=== PATIENT | male | born 1945 | race Caucasian/White ===

== ENCOUNTER 2016-11-25 15:09 | Outpatient (CLI) | payer MEDICARE ==
[2016-11-25 16:09] LABS: #Basophils 0.1 thou/uL (0.0-0.2); #Eosinphils 0.1 thou/uL (0.0-0.7); #Monocytes 0.5 thou/uL (0.11-0.59); #Neutrophils 3.3 thou/uL (1.40-6.50); %Eosinophils 2.4 % (0.0-10.0); %Lymphocytes 19.8 % (21.0-51.0); %Monocytes 9.3 % (0.0-10.0); Hematocrit 40.3 % (42.0-52.0); Mean Platelet Volume 8.5 fL (7.4-10.4); Red Blood Cell (RBC) Count 4.13 mill/uL (4.70-6.10); White Blood Cell (WBC) Count 4.8 thou/uL (4.8-10.8)
[2016-11-25 16:33] LABS: ALT (SGPT) 13 U/L (0-55); AST (SGOT) 18 U/L (5-34); Alkaline Phosphatase 82 U/L (40-150); Anion Gap 14 mmol/L (10-20); BUN (Urea Nitrogen) 16 mg/dL (8.4-25.7); Bilirubin, Direct 0.2 mg/dL (0.1-0.3); Bilirubin, Total 0.5 mg/dL (0.2-1.2); Calc. Creatinine Clearance 0 mL/min (70-130); Carbon Dioxide 22 mmol/L (23-31); Chloride 111 mmol/L (98-107); Estimated GFR-MDRD 63; LDL Cholesterol, Calculated 69 mg/dL; Protein, Total 6.1 g/dL (5.8-8.1)
== END 2016-11-25 15:10 | disposition home or self-care (01) ==
LOC: NAVSJIPCSP 15:09
PROVIDERS: ATTEND Family Medicine
DX: M19.90 Unspecified osteoarthritis, unspecified site (principal); N40.1 Benign prostatic hyperplasia with lower urinary tract symptoms; M54.10 Radiculopathy, site unspecified; E78.00 Pure hypercholesterolemia, unspecified; J44.9 Chronic obstructive pulmonary disease, unspecified; I48.2 Chronic atrial fibrillation; I63.9 Cerebral infarction, unspecified
CPT/HCPCS: 36415; 80048; 80061; 80076; 83036; 84443; 85025

== ENCOUNTER 2017-03-26 09:39 | Outpatient (CLI) | payer MEDICARE ==
[2017-03-26 12:29] LABS: #Eosinphils 0.2 thou/uL (0.0-0.7); #Lymphocytes 0.7 thou/uL (1.20-3.40); #Monocytes 0.5 thou/uL (0.11-0.59); #Neutrophils 3.1 thou/uL (1.40-6.50); %Eosinophils 4.4 % (0.0-10.0); %Lymphocytes 16.2 % (21.0-51.0); %Neutrophils 68.4 % (42.0-75.0); Hemoglobin 12.9 g/dL (14.0-18.0); Mean Corpuscular HGB CONC 33.2 g/dL (32.0-36.0); Mean Corpuscular Hemoglobin 32.2 pg (27.0-31.0); Mean Corpuscular Volume 96.9 fl (80.0-94.0); Platelet Count 164 thou/uL (130-400); RBC Distribution Width 12.2 % (11.5-14.5); White Blood Cell (WBC) Count 4.5 thou/uL (4.8-10.8)
[2017-03-26 12:52] LABS: ALT (SGPT) 10 U/L (8-55); AST (SGOT) 19 U/L (5-34); Albumin 4.1 g/dL (3.4-4.8); Alkaline Phosphatase 109 U/L (40-150); Anion Gap 16 mmol/L (10-20); BUN (Urea Nitrogen) 18 mg/dL (8.4-25.7); Bilirubin, Direct 0.2 mg/dL (0.1-0.3); Bilirubin, Total 0.6 mg/dL (0.2-1.2); Calc. Creatinine Clearance 0 mL/min (70-130); Calcium 8.9 mg/dL (7.8-10.44); Carbon Dioxide 21 mmol/L (23-31); Cardiac Risk 3.4 (Less than 4.5); Chloride 109 mmol/L (98-107); Cholesterol 127 mg/dL (< 200 Desired); Estimated GFR-MDRD 64; Glucose 92 mg/dL (83-110); HDL Cholesterol 37 mg/dL (>60 Neg Risk); LDL Cholesterol, Calculated 82 mg/dL; Potassium 4.8 mmol/L (3.5-5.1); Protein, Total 6.4 g/dL (5.8-8.1); Sodium 141 mmol/L (136-145); Triglycerides 39 mg/dL (Less than 150)
== END 2017-03-26 09:40 | disposition home or self-care (01) ==
LOC: NAVSJIPCSP 09:39
PROVIDERS: ATTEND Family Medicine
DX: E78.00 Pure hypercholesterolemia, unspecified (principal); I48.2 Chronic atrial fibrillation; I10 Essential (primary) hypertension; Z79.899 Other long term (current) drug therapy
CPT/HCPCS: 36415; 80048; 80061; 80076; 83036; 84443; 85025

== ENCOUNTER 2017-08-05 09:58 | Outpatient (CLI) | payer MEDICARE ==
[2017-08-05 12:31] LABS: #Basophils 0.1 thou/uL (0.0-0.2); #Eosinphils 0.3 thou/uL (0.0-0.7); #Lymphocytes 0.9 thou/uL (1.20-3.40); #Monocytes 0.5 thou/uL (0.11-0.59); #Neutrophils 3.7 thou/uL (1.40-6.50); %Basophils 0.9 % (0.0-1.0); %Eosinophils 6.1 % (0.0-10.0); %Lymphocytes 16.8 % (21.0-51.0); %Monocytes 8.9 % (0.0-10.0); %Neutrophils 67.3 % (42.0-75.0); Hemoglobin 13.1 g/dL (14.0-18.0); Mean Corpuscular HGB CONC 32.5 g/dL (32.0-36.0); Mean Corpuscular Hemoglobin 31.8 pg (27.0-31.0); Mean Corpuscular Volume 97.9 fl (80.0-94.0); Mean Platelet Volume 7.6 fL (7.4-10.4); Platelet Count 155 thou/uL (130-400); RBC Distribution Width 11.7 % (11.5-14.5); Red Blood Cell (RBC) Count 4.13 mill/uL (4.70-6.10); White Blood Cell (WBC) Count 5.6 thou/uL (4.8-10.8)
[2017-08-05 12:40] LABS: ALT (SGPT) 13 U/L (8-55); AST (SGOT) 15 U/L (5-34); Albumin 4.1 g/dL (3.4-4.8); Alkaline Phosphatase 83 U/L (40-150); Anion Gap 14 mmol/L (10-20); BUN (Urea Nitrogen) 17 mg/dL (8.4-25.7); Bilirubin, Direct 0.4 mg/dL (0.1-0.3); Bilirubin, Total 0.9 mg/dL (0.2-1.2); Calc. Creatinine Clearance 0 mL/min (70-130); Calcium 9.2 mg/dL (7.8-10.44); Carbon Dioxide 23 mmol/L (23-31); Cardiac Risk 3.2 (Less than 4.5); Chloride 107 mmol/L (98-107); Cholesterol 124 mg/dl (< 200 Desired); Estimated GFR-MDRD 64; Glucose 87 mg/dL (83-110); HDL Cholesterol 39 mg/dL (>60 Neg Risk); LDL Cholesterol, Calculated 72 mg/dL; Potassium 4.3 mmol/L (3.5-5.1); Protein, Total 6.4 g/dL (5.8-8.1); Sodium 140 mmol/L (136-145); Triglycerides 67 mg/dL (Less than 150)
[2017-08-05 12:57] LABS: PSA-Asymptomatic (SCREENING) 0.72 ng/mL (0-4.0); Thyroid Stimulating Hormone 2.6951 uIU/mL (0.35-4.94)
[2017-08-05 13:58] LABS: Hemoglobin A1c 5.2 % (4.0-6.0)
== END 2017-08-05 09:59 | disposition home or self-care (01) ==
LOC: NAVSJIPCSP 09:58
PROVIDERS: ATTEND Family Medicine
DX: Z12.5 Encounter for screening for malignant neoplasm of prostate (principal); E78.00 Pure hypercholesterolemia, unspecified; I10 Essential (primary) hypertension; I48.2 Chronic atrial fibrillation; I63.9 Cerebral infarction, unspecified; I69.398 Other sequelae of cerebral infarction; I95.1 Orthostatic hypotension; R42 Dizziness and giddiness; Z79.899 Other long term (current) drug therapy
CPT/HCPCS: 36415; 80048; 80061; 80076; 83036; 83880; 84443; 85025; G0103

== ENCOUNTER 2018-08-04 15:31 | Outpatient (CLI) | payer MEDICARE ==
--- NOTE | 2018-08-04 16:34 | RAD ---
PA AND LATERAL CHEST X-RAY: 08/04/18 HISTORY: Wheezing. COMPARISON: 10/12/17. FINDINGS: A dual lead left subclavian cardiac pacemaking device remains in place. Postsurgical changes related to median sternotomy and cardiac valve replacement are again present. The cardiac silhouette is at th e upper limits of normal in size. Thoracic aorta is tortuous. Parenchymal opacity in the right mid dimas ng zone is resolved. Lungs appear clear on today's exam. No other interval change. IMPRESSION: No acute cardiopulmonary process. POS: ANA MARIA
== END 2018-08-04 15:32 | disposition home or self-care (01) ==
LOC: NAV RAD 15:31
PROVIDERS: ATTEND Family Medicine
DX: R06.2 Wheezing (principal); R06.02 Shortness of breath; Z87.01 Personal history of pneumonia (recurrent)
CPT/HCPCS: 71046

== ENCOUNTER 2019-02-21 15:36 | Emergency (ER) | payer MEDICARE ==
[2019-02-21 16:31] LABS: #Basophils 0.1 thou/uL (0.0-0.2); #Eosinphils 0.1 thou/uL (0.0-0.7); #Monocytes 0.8 thou/uL (0.11-0.59); #Neutrophils 6.8 thou/uL (1.40-6.50); %Basophils 0.9 % (0.0-1.0); %Eosinophils 1.3 % (0.0-10.0); %Monocytes 8.6 % (0.0-10.0); %Neutrophils 78.3 % (42.0-75.0); Hemoglobin 13.6 g/dL (14.0-18.0); Mean Corpuscular HGB CONC 32.1 g/dL (32.0-36.0); Mean Corpuscular Hemoglobin 31.7 pg (27.0-31.0); Mean Corpuscular Volume 98.6 fL (78.0-98.0); Mean Platelet Volume 7.3 fL (7.4-10.4); Platelet Count 177 thou/uL (130-400); RBC Distribution Width 11.6 % (11.5-14.5); Red Blood Cell (RBC) Count 4.28 mill/uL (4.70-6.10); White Blood Cell (WBC) Count 8.7 thou/uL (4.8-10.8)
--- NOTE | 2019-02-21 16:34 | RAD ---
FXR Chest 1 View Portable History: [Dyspnea] Comparison: Radiograph July 2018 Findings: Heart size is enlarged. No pneumothorax. Cardiac device is similar. No focal confluent airs pace consolidation. There appear be surgical clips projecting over the left neck. Increased pericardial fat along the lef t costophrenic sulcus. Impression: Cardiomegaly without evidence of heart failure.
[2019-02-21 16:38] LABS: INR-International Normal Ratio 1.3; Prothrombin Time 16.2 SEC (12.0-14.7)
[2019-02-21 16:46] LABS: ALT (SGPT) 18 U/L (8-55); AST (SGOT) 19 U/L (5-34); Albumin 4.1 g/dL (3.4-4.8); Alkaline Phosphatase 93 U/L (40-150); Anion Gap 13 mmol/L (10-20); BUN (Urea Nitrogen) 18 mg/dL (8.4-25.7); Bilirubin, Total 0.5 mg/dL (0.2-1.2); CK (CPK) 110 U/L (30-200); Calc. Creatinine Clearance 0 mL/min (70-130); Calcium 9.9 mg/dL (7.8-10.44); Carbon Dioxide 24 mmol/L (23-31); Chloride 106 mmol/L (98-107); Estimated GFR-MDRD 73; Globulin 2.7 g/dL (2.4-3.5); Glucose 142 mg/dL (83-110); Potassium 4.1 mmol/L (3.5-5.1); Protein, Total 6.8 g/dL (5.8-8.1); Sodium 139 mmol/L (136-145)
[2019-02-21] MEDS ORDERED: Azithromycin 250 MG TAB ONE (17:17)
[2019-02-21] MEDS ORDERED: methylPREDNISolone Sod Succ/PF 125 MG/2 ML VIAL ONE (17:17)
== END 2019-02-21 17:35 | disposition home or self-care (01) ==
LOC: NAV ERS 15:36
DX: J44.9 Chronic obstructive pulmonary disease, unspecified (principal); D64.9 Anemia, unspecified; I48.91 Unspecified atrial fibrillation; E78.5 Hyperlipidemia, unspecified; N18.2 Chronic kidney disease, stage 2 (mild); Z86.73 Personal history of transient ischemic attack (TIA), and cerebral infarction without residual deficits; I25.10 Atherosclerotic heart disease of native coronary artery without angina pectoris; I25.2 Old myocardial infarction; I10 Essential (primary) hypertension; F41.9 Anxiety disorder, unspecified; F32.9 Major depressive disorder, single episode, unspecified; Z79.82 Long term (current) use of aspirin; Z79.899 Other long term (current) drug therapy; Z79.51 Long term (current) use of inhaled steroids
CPT/HCPCS: 71045; 80053; 82550; 83880; 84484; 85025; 85610; 85730; 87804; 93005; 96374; J2930

== ENCOUNTER 2019-03-13 11:45 | Emergency (ER) | payer MEDICARE ==
[2019-03-13] MEDS ORDERED: Bacitracin Zinc 1 Packet ONE (12:16)
== END 2019-03-13 12:42 | disposition home or self-care (01) ==
LOC: NAV ERS 11:45
DX: S51.811A Laceration without foreign body of right forearm, initial encounter (principal); I48.91 Unspecified atrial fibrillation; E78.5 Hyperlipidemia, unspecified; I12.9 Hypertensive chronic kidney disease with stage 1 through stage 4 chronic kidney disease, or unspecified chronic kidney disease; N18.2 Chronic kidney disease, stage 2 (mild); Z86.73 Personal history of transient ischemic attack (TIA), and cerebral infarction without residual deficits; J44.9 Chronic obstructive pulmonary disease, unspecified; I25.2 Old myocardial infarction; Z79.899 Other long term (current) drug therapy; Z79.82 Long term (current) use of aspirin; W19.XXXA Unspecified fall, initial encounter
CPT/HCPCS: 99282

== ENCOUNTER 2019-04-08 12:02 | Outpatient (CLI) | payer MEDICARE ==
--- NOTE | 2019-04-08 12:33 | RAD ---
2 views of the chest: 04/08/2019 COMPARISON: 08/04/2018 HISTORY: Shortness of breath FINDINGS: Midline sternotomy wires are present. Stable dual lead transvenous pacing device. No pneumo thorax is noted. There is pulmonary vascular prominence and mild perihilar interstitial prominence. No focal consolidation or alveolar edema. No pleural effusion noted on either side. Mechanical cardia c valve noted. IMPRESSION: Mild pulmonary vascular congestion and perihilar interstitial prominence may signify mild interstitial edema in the proper clinical setting. No alveolar edema, focal consolidation, or evidence of pleural fluid.
== END 2019-04-08 12:03 | disposition home or self-care (01) ==
LOC: NAV RAD 12:02
PROVIDERS: ATTEND Nurse Practitioner Adult Health
DX: R06.02 Shortness of breath (principal); J94.8 Other specified pleural conditions; J98.4 Other disorders of lung
CPT/HCPCS: 71046

== ENCOUNTER 2019-06-08 17:37 | Outpatient (CLI) | payer MEDICARE ==
[2019-06-08 18:00] LABS: #Basophils 0.1 thou/uL (0.0-0.2); #Eosinphils 0.4 thou/uL (0.0-0.7); #Monocytes 0.7 thou/uL (0.11-0.59); #Neutrophils 5.2 thou/uL (1.40-6.50); %Basophils 0.8 % (0.0-1.0); %Eosinophils 5.5 % (0.0-10.0); %Lymphocytes 13.7 % (21.0-51.0); %Monocytes 8.9 % (0.0-10.0); Mean Corpuscular HGB CONC 31.6 g/dL (32.0-36.0); Mean Corpuscular Hemoglobin 29.8 pg (27.0-31.0); Mean Corpuscular Volume 94.2 fL (78.0-98.0); Mean Platelet Volume 6.9 fL (7.4-10.4); Platelet Count 296 thou/uL (130-400); RBC Distribution Width 13.9 % (11.5-14.5); Red Blood Cell (RBC) Count 4.03 mill/uL (4.70-6.10); White Blood Cell (WBC) Count 7.3 thou/uL (4.8-10.8)
[2019-06-08 18:04] LABS: Anion Gap 19 mmol/L (10-20); BUN (Urea Nitrogen) 16 mg/dL (8.4-25.7); Calc. Creatinine Clearance 0 mL/min (70-130); Calcium 9.2 mg/dL (7.8-10.44); Carbon Dioxide 23 mmol/L (23-31); Chloride 105 mmol/L (98-107); Estimated GFR-MDRD 59; Glucose 181 mg/dL (83-110); Sodium 143 mmol/L (136-145)
== END 2019-06-08 17:38 | disposition home or self-care (01) ==
LOC: NAV LABSP 17:37
PROVIDERS: ATTEND Family Medicine
DX: I50.9 Heart failure, unspecified (principal); J44.9 Chronic obstructive pulmonary disease, unspecified
CPT/HCPCS: 80048; 83880; 85025

== ENCOUNTER 2019-06-19 19:36 | Inpatient (IN) | payer MEDICARE ==
[2019-06-19] MEDS ORDERED: Acetaminophen 325 MG TAB PO PRN (20:34)
[2019-06-19] MEDS ORDERED: ALPRAZolam 0.25 MG TAB PO PRN (20:35)
[2019-06-19] MEDS: Ubidecarenone 50 MG CAP PO SCH (21:10)
[2019-06-19] MEDS: Apixaban 5 MG TAB PO SCH (21:11)
[2019-06-19] MEDS: Gabapentin 300 MG CAP PO SCH (21:11)
[2019-06-19] MEDS: FLUoxetine HCl 20 MG CAP PO SCH (21:11)
[2019-06-20 05:38] LABS: #Basophils 0.1 thou/uL (0.0-0.2); #Eosinphils 0.3 thou/uL (0.0-0.7); #Lymphocytes 0.9 thou/uL (1.20-3.40); #Monocytes 0.8 thou/uL (0.11-0.59); %Basophils 1.3 % (0.0-1.0); %Eosinophils 3.7 % (0.0-10.0); %Lymphocytes 12.3 % (21.0-51.0); %Monocytes 11.6 % (0.0-10.0); %Neutrophils 71.1 % (42.0-75.0); Hemoglobin 9.1 g/dL (14.0-18.0); Mean Corpuscular Volume 93.7 fL (78.0-98.0); Platelet Count 192 thou/uL (130-400); RBC Distribution Width 13.8 % (11.5-14.5); Red Blood Cell (RBC) Count 3.03 mill/uL (4.70-6.10)
[2019-06-20 05:51] LABS: ALT (SGPT) 14 U/L (8-55); AST (SGOT) 17 U/L (5-34); Albumin 2.8 g/dL (3.4-4.8); Alkaline Phosphatase 85 U/L (40-150); Anion Gap 12 mmol/L (10-20); BUN (Urea Nitrogen) 14 mg/dL (8.4-25.7); Bilirubin, Total 0.3 mg/dL (0.2-1.2); Calc. Creatinine Clearance 104 mL/min (70-130); Calcium 8.4 mg/dL (7.8-10.44); Carbon Dioxide 24 mmol/L (23-31); Chloride 108 mmol/L (98-107); Estimated GFR-MDRD Greater than 90; Globulin 2.1 g/dL (2.4-3.5); Glucose 91 mg/dL (83-110); Potassium 4.3 mmol/L (3.5-5.1); Protein, Total 4.9 g/dL (5.8-8.1); Sodium 140 mmol/L (136-145)
[2019-06-20] MEDS: Fish Oil 1,000 MG CAP PO SCH (08:57)
[2019-06-20] MEDS: Aspirin 81 mg Enteric Coated Tablet PO SCH (08:57)
[2019-06-20] MEDS: Calcium Carbonate + Vit D 1 TAB PO SCH (08:57)
[2019-06-20] MEDS: Apixaban 5 MG TAB PO SCH ×2 (08:57→20:49)
[2019-06-20] MEDS: Ascorbic Acid 500 mg Chewable Tablet PO SCH (08:57)
[2019-06-20] MEDS: Gabapentin 300 MG CAP PO SCH ×2 (08:58→20:49)
[2019-06-20] MEDS: Ubidecarenone 50 MG CAP PO SCH ×2 (08:58→20:49)
[2019-06-20] MEDS: Rosuvastatin 10 MG TAB PO SCH (08:58)
[2019-06-20] MEDS ORDERED: Acetaminophen 325 MG TAB PO PRN (10:05)
[2019-06-20] MEDS ORDERED: Non-Formulary Item 1 EACH (Melatonin [Melatonin] 10 MG) PO PRN (10:05)
[2019-06-20] MEDS ORDERED: ALPRAZolam 0.25 MG TAB PO PRN (10:05)
[2019-06-20] MEDS ORDERED: Senokot S 8.6-50 MG TAB PO PRN (10:07)
[2019-06-20] MEDS ORDERED: Loperamide HCl 2 MG CAP PO PRN (10:07)
[2019-06-20] MEDS ORDERED: Ondansetron ODT 4 MG TAB PO PRN (10:07)
[2019-06-20] MEDS ORDERED: Rosuvastatin 10 MG TAB PO SCH (10:15)
[2019-06-20] MEDS: FLUoxetine HCl 20 MG CAP PO SCH (20:49)
[2019-06-20] MEDS ORDERED: Apixaban 5 MG TAB PO SCH (21:00)
[2019-06-20] MEDS ORDERED: Gabapentin 300 MG CAP PO SCH (21:00)
[2019-06-20] MEDS ORDERED: Non-Formulary Item 1 EACH (Fluoxetine Hcl [Fluoxetine Hcl] 20 MG) PO SCH (21:00)
[2019-06-20] MEDS ORDERED: Non-Formulary Item 1 EACH (Ubidecarenone [Co Q-10] 200 MG) PO SCH (21:00)
--- NOTE | 2019-06-20 23:32 | HP ---
HISTORY OF PRESENT ILLNESS: Mr. Metcalf is a pleasant 73-year-old white male, well known to me with multiple medical problems. Apparently, he ended up at [facility] in [place], where he had an adverse reaction after his bdc manager had changed his medicine to amiodarone. He started having nausea and vomiting, and was brought back to the hospital at [facility]. He was taken off the amiodarone. He now was transferred to [facility] because of his extreme weakness and debility. PAST MEDICAL HISTORY: Reveals the patient has the following; 1. Congestive heart failure, [place] Heart Association class III. 2. Hypotension. 3. Chronic atrial fibrillation. 4. Atherosclerotic heart disease. 5. Chronic anemia. 6. Chronic obstructive pulmonary disease. 7. Essential hypertension. 8. HFrEF. 9. Long-term use of anticoagulants. 10. Generalized weakness. 11. Systolic heart failure, followed by Dr. Yovany Tsang. 12. Hyperlipidemia. 13. Neuropathy. 14. Prior stroke and TIAs. 15. Degenerative joint disease. 16. Constipation. PAST SURGICAL HISTORY: 1. CABG in 2006. 2. PTCA in 2004. 3. Cholecystectomy in 2007. 4. Pacemaker placement in 2013. 5. Aortic valve replacement in 2011. 6. Ablation x4. 7. Herniorrhaphy, twice in 1979 and 1994. 8. Appendectomy in 1949. 9. Colonoscopy by Dr. Andreas Ovalles in 2007. 10. Cardiac catheterization in 2015. 11. Left ureteroscopy with stone basket extraction of a stone along with retrograde pyelogram along with left ureteral stent placement, which was on 09/13/2017. FAMILY HISTORY: Reveals the patient's father at age 70, diagnosed with heart disease and stroke. The patient's mother at age 75 with heart issues. Siblings revealed brother in early 2017 for suspected lung issues and he was a smoker. The patient has a daughter, who is alive and a granddaughter, who is alive. SOCIAL HISTORY: 1. The patient did not smoke. 2. The patient used to drink a little bit of liquor, one daily. 3. [place] 4. The patient is retired. 5. The patient is . 6. The patient has two daughters. 7. The patient has 2 to 3 cups of coffee daily. 8. The patient does not exercise daily. 9. The patient is right-handed. ALLERGIES: REVEALS THE PATIENT IS ALLERGIC TO, 1. PENICILLIN. 2. IBUPROFEN. 3. COUMADIN. 4. CODEINE. 5. DOXYCYCLINE GIVES ITCH. PRESENT MEDICATIONS: Reveals the patient is presently on the following; 1. Tylenol 650 mg q.4 p.r.n. 2. DuoNebs 3 mL neb treatment q.6 hours p.r.n. 3. Xanax 0.25 at bedtime p.r.n. 4. Eliquis 5 mg b.i.d. 5. Vitamin C 1000 mg daily. 6. . 7. Calcium plus vitamin D one tab daily. 8. Vitamin D3 of 1000 units daily. 9. CoQ10 of 200 mg b.i.d. 10. Fish oil 1000 mg daily. 11. Fluoxetine 20 mg at bedtime. 12. Gabapentin 300 mg b.i.d. 13. Imodium p.r.n. 14. Melatonin 10 mg daily. 15. Zofran 4 mg p.r.n. 16. Pantoprazole 40 mg daily. 17. Ranexa 1000 mg p.o. b.i.d. 18. Rosuvastatin 10 mg every other day. 19. Senokot two tabs p.o. b.i.d. REVIEW OF SYSTEMS: CONSTITUTIONAL: Reveals the patient generally denies fever, chills, change in weight, or sleep problems. He does report to be very fatigued and weak. EYES: Denies eye pain, vision change, and/or blindness. ENT: Denies nasal congestion, rhinorrhea, or sneezing. RESPIRATORY: The patient denies cough, cold, congestion, or shortness of breath , although he does have poor exercise tolerance. CARDIOVASCULAR: Denies palpitations, although he has chronic atrial fib, which he does not feel. Denies chest pain, orthopnea, or claudication. GI: The patient denies nausea, vomiting, diarrhea, constipation, or bloody or black tarry stools. : Denies dysuria, hematuria, frequency, urgency, or incontinence. SKIN: Denies skin rashes or skin lesions. MUSCULOSKELETAL: The patient does complain of pain, mainly in his back. NEUROLOGICAL: The patient denies seizures, weakness, syncope, or numbness. PSYCHOLOGIC: The patient denies anxiety or depressive disorder. PHYSICAL EXAMINATION: VITAL SIGNS: This morning reveal blood pressure 134/73, pulse 73, respirations 20, O2 saturation 96% to 97% on room air, and T-max 98.3. GENERAL: This is a well-developed, well-nourished, alert and oriented x3 white male, in no apparent distress at this time. HEENT: Reveals normocephalic and nontraumatic cranium. Pupils are equally round and reactive. Extraocular movements are intact. Nose and throat are clear, but slightly dry. NECK: Supple without masses, nodes, or bruits. No jugular venous distention is noted. CHEST: Clear to auscultation. No rales, no rhonchi, no wheezes are heard. No cough is noted. HEART: Reveals an irregularly irregular rate and rhythm. ABDOMEN: Soft, nontender without organomegaly. Normal bowel sounds are noted in all 4 quadrants. No rebound or guarding is noted. : Deferred. EXTREMITIES: Reveal no clubbing, cyanosis, or edema. SKIN: Reveals a couple of scraped areas on his shins that apparently he rubbed up against the bed or something. PSYCHIATRIC: The patient shows no signs or symptoms of anxiety or depressive disorder. ASSESSMENT: 1. Coronary artery disease. 2. Systolic congestive heart failure. 3. Hypertension. 4. Chronic obstructive pulmonary disease. 5. Gastroesophageal reflux disease. 6. Hyperlipidemia. 7. Neuropathy. 8. Prior history of stroke and transient ischemic attacks. 9. Degenerative joint disease. 10. Constipation. 11. Generalized weakness. PLAN: 1. The patient is admitted here for physical therapy and occupational therapy. 2. We will continue to monitor the patient's heart rate for RVR. 3. We will continue to monitor the patient's blood pressure and adjust medications as needed. 4. Monitor the patient for chest pain. 5. Continue to monitor the patient's anemia and renal indices. 6. Stress ulcer prophylaxis. 7. Decubitus precautions. 8. DVT prophylaxis. 9. Physical therapy and occupational therapy. Job ID: [id number] [facility]
[2019-06-21 05:34] LABS: #Basophils 0.1 thou/uL (0.0-0.2); #Eosinphils 0.3 thou/uL (0.0-0.7); #Lymphocytes 0.8 thou/uL (1.20-3.40); #Monocytes 0.7 thou/uL (0.11-0.59); #Neutrophils 4.4 thou/uL (1.40-6.50); %Eosinophils 4.3 % (0.0-10.0); %Lymphocytes 13.1 % (21.0-51.0); %Monocytes 10.8 % (0.0-10.0); %Neutrophils 70.8 % (42.0-75.0); Hemoglobin 9.3 g/dL (14.0-18.0); Mean Corpuscular HGB CONC 31.3 g/dL (32.0-36.0); Mean Corpuscular Hemoglobin 29.2 pg (27.0-31.0); Mean Corpuscular Volume 93.1 fL (78.0-98.0); Mean Platelet Volume 6.7 fL (7.4-10.4); Platelet Count 199 thou/uL (130-400); RBC Distribution Width 14.1 % (11.5-14.5); Red Blood Cell (RBC) Count 3.18 mill/uL (4.70-6.10); White Blood Cell (WBC) Count 6.3 thou/uL (4.8-10.8)
[2019-06-21 05:48] LABS: ALT (SGPT) 14 U/L (8-55); AST (SGOT) 16 U/L (5-34); Albumin 2.9 g/dL (3.4-4.8); Alkaline Phosphatase 79 U/L (40-150); Anion Gap 12 mmol/L (10-20); BUN (Urea Nitrogen) 10 mg/dL (8.4-25.7); Bilirubin, Total 0.3 mg/dL (0.2-1.2); Calc. Creatinine Clearance 107 mL/min (70-130); Calcium 8.5 mg/dL (7.8-10.44); Carbon Dioxide 24 mmol/L (23-31); Chloride 109 mmol/L (98-107); Estimated GFR-MDRD Greater than 90; Globulin 2.1 g/dL (2.4-3.5); Glucose 94 mg/dL (83-110); Sodium 141 mmol/L (136-145)
[2019-06-21 06:11] LABS: Bilirubin Negative (Negative); Blood, Urine Negative (Negative); Clarity Clear (Clear); Glucose, Urine (Dipstick) Negative (Negative); Leukocyte Negative (Negative); Nitrite Negative (Negative); Protein, Urine (Dipstick) Negative (Neg-Trace)
[2019-06-21 07:17] LABS: Bacteria/HPF None Seen HPF (None Seen); RBC/HPF None Seen HPF (0-3); Squamous Epithelial None Seen HPF (0-3); WBC/HPF 0-3 HPF (0-3)
[2019-06-21] MEDS ORDERED: Calcium Carbonate + Vit D 1 TAB PO SCH (09:00)
[2019-06-21] MEDS ORDERED: Non-Formulary Item 1 EACH (Ascorbic Acid [C-1000] 1,000 MG) PO SCH (09:00)
[2019-06-21] MEDS ORDERED: Fish Oil 1,000 MG CAP PO SCH (09:00)
[2019-06-21] MEDS ORDERED: Aspirin 81 mg Enteric Coated Tablet PO SCH (09:00)
[2019-06-21] MEDS: Apixaban 5 MG TAB PO SCH ×2 (09:15→20:50)
[2019-06-21] MEDS: Ascorbic Acid 500 mg Chewable Tablet PO SCH (09:15)
[2019-06-21] MEDS: Gabapentin 300 MG CAP PO SCH ×2 (09:16→20:50)
[2019-06-21] MEDS: Fish Oil 1,000 MG CAP PO SCH (09:16)
[2019-06-21] MEDS: Calcium Carbonate + Vit D 1 TAB PO SCH (09:16)
[2019-06-21] MEDS: Aspirin 81 mg Enteric Coated Tablet PO SCH (09:16)
[2019-06-21] MEDS: Ubidecarenone 50 MG CAP PO SCH ×2 (09:17→20:49)
--- NOTE | 2019-06-21 10:28 | PRG ---
DATE OF SERVICE: 06/21/2019 SUBJECTIVE: Mr. Metcalf is a 73-year-old white male with multiple medical problems. Apparently, he went to [facility] and had a Watchman procedure done. On his way home, he started having nausea and vomiting, and was transferred back to the hospital at [facility]. It was felt his amiodarone had aggravated his stomach, so he was stopped on that. He was eventually stabilized and transferred to [facility] for extreme weakness and debility. The patient states he is feeling much better today and does not have any indigestion and is eating fairly well. He has no complaints today. OBJECTIVE: VITAL SIGNS: Today blood pressure 152/71, pulse 70 to 73, respirations 20, O2 saturation 95% to 97% on room air, and T-max 98.5. GENERAL: This is a well-developed, well-nourished, pleasant white male, in no apparent distress. He is getting ready to do his therapy this morning. HEENT: Normocephalic and nontraumatic cranium. Pupils are equally round and reactive. Extraocular movements are intact. Nose and throat are slightly dry. NECK: Supple without masses, nodes, or bruits. No jugular venous distention is noted. CHEST: Clear to auscultation. No rales, rhonchi, or wheezes are heard. No cough is noted. HEART: Irregularly irregular rate and rhythm. ABDOMEN: Soft, nontender without organomegaly. Normal bowel sounds noted in all 4 quadrants. No rebound or guarding is noted. : Deferred. EXTREMITIES: No clubbing, cyanosis, or edema. ASSESSMENT: 1. Coronary artery disease. 2. Systolic congestive heart failure. 3. Hypertension. 4. Chronic obstructive pulmonary disease. 5. Gastroesophageal reflux disease. 6. Hyperlipidemia. 7. Neuropathy. 8. Prior history of stroke and transient ischemic attacks. 9. Degenerative joint disease. 10. Constipation. 11. Generalized weakness. PLAN: 1. Continue aggressive physical therapy and occupational therapy. 2. Continue to monitor the patient's heart rate for RVR. 3. Monitor the patient's blood pressure and adjust medications as needed. 4. Monitor the patient for chest pain. 5. Continue to monitor the patient's anemia and renal indices. 6. Stress ulcer prophylaxis. 7. Decubitus precautions. 8. DVT prophylaxis. 9. Physical therapy and occupational therapy. Job ID: [id number]
[2019-06-21] MEDS: FLUoxetine HCl 20 MG CAP PO SCH (20:50)
[2019-06-22] MEDS: Apixaban 5 MG TAB PO SCH ×2 (08:28→20:39)
[2019-06-22] MEDS: Ascorbic Acid 500 mg Chewable Tablet PO SCH (08:28)
[2019-06-22] MEDS: Fish Oil 1,000 MG CAP PO SCH (08:28)
[2019-06-22] MEDS: Aspirin 81 mg Enteric Coated Tablet PO SCH (08:28)
[2019-06-22] MEDS: Ubidecarenone 50 MG CAP PO SCH ×2 (08:28→20:39)
[2019-06-22] MEDS: Gabapentin 300 MG CAP PO SCH ×2 (08:28→20:39)
[2019-06-22] MEDS: Rosuvastatin 10 MG TAB PO SCH (08:28)
[2019-06-22] MEDS: Calcium Carbonate + Vit D 1 TAB PO SCH (08:29)
--- NOTE | 2019-06-22 17:54 | PRG ---
DATE OF SERVICE: 06/22/2019 HISTORY OF PRESENT ILLNESS: Mr. Metcalf is a 73-year-old white male with multiple medical problems. He was admitted to [facility] in [place] and had a Watchman procedure done. He did well, and on his way back, he had to stop in [place], where he had significant projectile vomiting. An ambulance was called and he was transferred back to [facility]. It was felt that his amiodarone has aggravated the stomach, so he stopped that. Eventually, he stabilized and was transferred to [facility] for physical therapy and occupational therapy because of his extreme weakness. SUBJECTIVE: The patient states he did well today. His brand new Rollator was evaluated by Physical Therapy and was deemed to be too short for him. Apparently, a family member bought that for him. They will try to get a new one or exchange or something. Otherwise, he states he is doing well and is walking a bit better, but he tends to have significant problems with his balance and he kind of pings off each wall. PHYSICAL EXAMINATION: VITAL SIGNS: Reveal blood pressure this afternoon 158/77, pulse 70, respirations 18, O2 saturation 96% on room air, and T-max 98.3. GENERAL: This is a well-developed, well-nourished, tall, white male, in no apparent distress at this time. HEENT: Reveal normocephalic and nontraumatic cranium. Pupils are equally round and reactive. Extraocular movements are intact. Nose and throat are moist today. NECK: Supple without masses, nodes, or bruits. CHEST: Clear to auscultation. No rales, rhonchi, wheezes, or cough is heard. HEART: Reveals an irregularly irregular rate and rhythm. ABDOMEN: Soft and nontender without organomegaly. Normal bowel sounds are noted. No rebound or guarding is noted. : Deferred. EXTREMITIES: Reveal no clubbing, cyanosis, or edema. ASSESSMENT: 1. Systolic congestive heart failure, acute on chronic. 2. Coronary artery disease. 3. Chronic obstructive pulmonary disease. 4. Hypertension. 5. Gastroesophageal reflux disease. 6. Hyperlipidemia. 7. Neuropathy. 8. Prior history of stroke and transient ischemic attacks. 9. Degenerative joint disease. 10. Constipation. 11. Generalized weakness. PLAN: 1. Continue aggressive physical therapy and occupational therapy. 2. Continue to monitor the patient's heart for RVR. 3. Monitor the patient's blood pressure and adjust medications as needed. 4. Monitor the patient for chest pain. 5. Monitor the patient's anemia and renal indices. 6. Stress ulcer prophylaxis. 7. Decubitus precautions. 8. DVT prophylaxis. Job ID: [id number]
[2019-06-22] MEDS: FLUoxetine HCl 20 MG CAP PO SCH (20:39)
[2019-06-22] MEDS: Melatonin 3 MG TAB PO PRN (20:44)
[2019-06-23] MEDS ORDERED: Mag-Al Plus 1200 MG/1200 MG/120 MG/30 ML UDCUP PO PRN (06:38)
[2019-06-23] MEDS: Ascorbic Acid 500 mg Chewable Tablet PO SCH (09:14)
[2019-06-23] MEDS: Aspirin 81 mg Enteric Coated Tablet PO SCH (09:14)
[2019-06-23] MEDS: Ubidecarenone 50 MG CAP PO SCH ×2 (09:14→21:24)
[2019-06-23] MEDS: Fish Oil 1,000 MG CAP PO SCH (09:14)
[2019-06-23] MEDS: Calcium Carbonate + Vit D 1 TAB PO SCH (09:15)
[2019-06-23] MEDS: Polyethylene Glycol 3350 17 GM Packet PO PRN (09:15)
[2019-06-23] MEDS: Apixaban 5 MG TAB PO SCH ×2 (09:15→21:23)
[2019-06-23] MEDS: Gabapentin 300 MG CAP PO SCH ×2 (09:15→21:23)
[2019-06-23] MEDS: FLUoxetine HCl 20 MG CAP PO SCH (21:23)
[2019-06-23] MEDS: Melatonin 3 MG TAB PO PRN (21:23)
[2019-06-24] MEDS: Polyethylene Glycol 3350 17 GM Packet PO PRN (09:03)
[2019-06-24] MEDS: Calcium Carbonate + Vit D 1 TAB PO SCH (09:03)
[2019-06-24] MEDS: Ubidecarenone 50 MG CAP PO SCH ×2 (09:04→21:43)
[2019-06-24] MEDS: Fish Oil 1,000 MG CAP PO SCH (09:04)
[2019-06-24] MEDS: Gabapentin 300 MG CAP PO SCH ×2 (09:04→21:43)
[2019-06-24] MEDS: Aspirin 81 mg Enteric Coated Tablet PO SCH (09:05)
[2019-06-24] MEDS: Apixaban 5 MG TAB PO SCH ×2 (09:05→21:43)
[2019-06-24] MEDS: Ascorbic Acid 500 mg Chewable Tablet PO SCH (09:05)
[2019-06-24] MEDS: Rosuvastatin 10 MG TAB PO SCH (09:05)
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
[2019-06-24] MEDS: FLUoxetine HCl 20 MG CAP PO SCH (21:43)
[2019-06-24] MEDS: Melatonin 3 MG TAB PO PRN (21:49)
[2019-06-24] MEDS: ALPRAZolam 0.5 MG TAB PO PRN (22:03)
[2019-06-25] MEDS: Apixaban 5 MG TAB PO SCH ×2 (09:38→22:09)
[2019-06-25] MEDS: Aspirin 81 mg Enteric Coated Tablet PO SCH (09:38)
[2019-06-25] MEDS: Ascorbic Acid 500 mg Chewable Tablet PO SCH (09:38)
[2019-06-25] MEDS: Gabapentin 300 MG CAP PO SCH ×2 (09:39→22:09)
[2019-06-25] MEDS: Calcium Carbonate + Vit D 1 TAB PO SCH (09:39)
[2019-06-25] MEDS: Fish Oil 1,000 MG CAP PO SCH (09:39)
[2019-06-25] MEDS: Ubidecarenone 50 MG CAP PO SCH ×2 (09:39→22:07)
[2019-06-25] MEDS: Polyethylene Glycol 3350 17 GM Packet PO PRN (09:40)
[2019-06-25] MEDS: ALPRAZolam 0.5 MG TAB PO PRN (22:08)
[2019-06-25] MEDS: FLUoxetine HCl 20 MG CAP PO SCH (22:09)
[2019-06-25] MEDS: Melatonin 3 MG TAB PO PRN (22:09)
[2019-06-26] MEDS: Aspirin 81 mg Enteric Coated Tablet PO SCH (09:56)
[2019-06-26] MEDS: Calcium Carbonate + Vit D 1 TAB PO SCH (09:56)
[2019-06-26] MEDS: Fish Oil 1,000 MG CAP PO SCH (09:56)
[2019-06-26] MEDS: Apixaban 5 MG TAB PO SCH ×2 (09:56→21:28)
[2019-06-26] MEDS: Ascorbic Acid 500 mg Chewable Tablet PO SCH (09:56)
[2019-06-26] MEDS: Ubidecarenone 50 MG CAP PO SCH ×2 (09:57→21:30)
[2019-06-26] MEDS: Gabapentin 300 MG CAP PO SCH ×2 (09:57→21:28)
[2019-06-26] MEDS: Rosuvastatin 10 MG TAB PO SCH (09:57)
[2019-06-26 13:20] VITALS: BMI 25.0
[2019-06-26] MEDS: FLUoxetine HCl 20 MG CAP PO SCH (21:28)
[2019-06-26] MEDS: Melatonin 3 MG TAB PO PRN (21:29)
[2019-06-26] MEDS: ALPRAZolam 0.5 MG TAB PO PRN (21:29)
--- NOTE | 2019-06-26 21:51 | PRG ---
DATE OF SERVICE: 06/26/2019 SUBJECTIVE: The patient feels well. He is getting stronger, is preparing to be discharged home. He is having no further nausea, or vomiting. Having increased strength. OBJECTIVE: VITAL SIGNS: Blood pressure 151/69, temperature is 97, pulse 71, respirations 16, O2 sats 94% on room air. GENERAL: The patient is walking in the tr[place], although he has high fall risk. ASSESSMENT: 1. Resolving deconditioning. 2. Stable chronic obstructive pulmonary disease. 3. Stable hypertension. 4. Stable congestive heart failure, compensated. 5. Stable atrial fibrillation with rate control, but no anticoagulation. PLAN: 1. Continue PT/OT. 2. Monitor vital signs with therapy. 3. Discuss safety awareness and discharge planning. Job ID: [id number]
--- NOTE | 2019-06-27 07:45 | PRG ---
DATE OF SERVICE: 06/25/2019 SUBJECTIVE: The patient is a 73-year-old white male, patient of Dr. Victoria Hurtado with a history of reaction to amiodarone after a Watchman procedure at [facility] with subsequent severe nausea, vomiting, and weakness, and inability to care for himself. OBJECTIVE: GENERAL: The patient is awake and alert at this time, in no acute distress, cooperating well with therapy. VITAL SIGNS: Show him to have temperature 96.1, pulse 70, respirations 20, O2 sats 95% on room air, blood pressure is 144/71. LUNGS: Clear. CARDIAC: Shows regular rhythm. ABDOMEN: Soft, nontender. SKIN/EXTREMITIES: Display no edema, clubbing, or cyanosis. NEUROLOGIC: Shows no focal finding. ASSESSMENT: 1. Stable systolic congestive heart failure, compensated. 2. Asymptomatic coronary artery disease, stable. 3. Hypertension, controlled to goal. 4. History of stroke and transient ischemic attack with no recent occurrence. 5. History of atrial fibrillation with rate control and no need for anticoagulation after Watchman procedure. PLAN: 1. Continue apixaban; although, history states he had a Watchman procedure. We will discuss with Dr. Hurtado. 2. Continue PT/OT. 3. Monitor for chest pain, shortness of breath, or dizziness. Job ID: [id number]
[2019-06-27] MEDS: Ascorbic Acid 500 mg Chewable Tablet PO SCH (08:23)
[2019-06-27] MEDS: Polyethylene Glycol 3350 17 GM Packet PO PRN (08:23)
[2019-06-27] MEDS: Calcium Carbonate + Vit D 1 TAB PO SCH (08:23)
[2019-06-27] MEDS: Apixaban 5 MG TAB PO SCH ×2 (08:24→19:56)
[2019-06-27] MEDS: Aspirin 81 mg Enteric Coated Tablet PO SCH (08:24)
[2019-06-27] MEDS: Gabapentin 300 MG CAP PO SCH ×2 (08:24→19:57)
[2019-06-27] MEDS: Fish Oil 1,000 MG CAP PO SCH (08:24)
[2019-06-27] MEDS: Ubidecarenone 50 MG CAP PO SCH ×2 (19:25→19:57)
[2019-06-27] MEDS: FLUoxetine HCl 20 MG CAP PO SCH (19:56)
[2019-06-27 20:23] VITALS: TEMP 98.2
--- NOTE | 2019-06-27 21:00 | PRG ---
DATE OF SERVICE: 06/27/2019 HISTORY: Mr. Metcalf is a very pleasant 73-year-old white male, who had a Watchman procedure at [facility]. He postoperatively did well and was sent home. He started having some nausea, vomiting, and had significant vomiting in [place], [place]. He had to come out of the car and eventually EMS was called and transported him back to [facility]. He was stabilized. He was on amiodarone, which was thought to have aggravated his stomach, it was stopped. Eventually, he was transferred to [facility] for physical therapy and occupational therapy. SUBJECTIVE: The patient states he is doing well and walking much better. He states he pushed a wheelchair around several times yesterday and is ready for discharge. I did talk with Physical Therapy and Occupational Therapy and they think he most likely be discharged tomorrow, the next day. OBJECTIVE: VITAL SIGNS: Reveal blood pressure 155/77, pulse 70, respirations 20, O2 saturation 95% to 96% on room air, and T-max 96. GENERAL: This is a well-developed and well-nourished, very pleasant, slightly obese white male, in no apparent distress at this time. HEENT: Normocephalic and nontraumatic cranium. Pupils are equally round and reactive. Extraocular movements intact. Nose and throat are slightly dry. NECK: Supple without masses, nodes, or bruits. CHEST: Clear to auscultation. No rales, rhonchi, wheezes, or cough is heard. HEART: Reveals an irregularly irregular rate and rhythm. ABDOMEN: Soft and nontender without organomegaly. Normal bowel sounds are noted in all 4 quadrants. No rebound or guarding is noted. : Deferred. EXTREMITIES: Reveal no clubbing, cyanosis, or edema. ASSESSMENT: 1. Systolic congestive heart failure, acute on chronic, presently stable. 2. Coronary artery disease. 3. Chronic obstructive pulmonary disease. 4. Hypertension. 5. Gastroesophageal reflux disease. 6. Hyperlipidemia. 7. Neuropathy. 8. Prior history of stroke and transient ischemic attack. 9. Degenerative joint disease. 10. Constipation. 11. Generalized weakness. PLAN: 1. Discharge planning for discharge tomorrow, the next day. 2. Continue aggressive physical therapy and occupational therapy. 3. Continue to monitor the patient's heart for RVR. 4. Monitor the patient's blood pressure, adjust medications as needed. 5. Monitor the patient for chest pain. 6. Monitor the patient's anemia and renal indices. 7. Stress ulcer prophylaxis. 8. Decubitus precautions. 9. DVT prophylaxis. 10. Continue physical therapy and occupational therapy. Job ID: [id number]
[2019-06-27] MEDS: ALPRAZolam 0.5 MG TAB PO PRN (21:18)
[2019-06-28 06:04] LABS: #Basophils 0.1 thou/uL (0.0-0.2); #Eosinphils 0.3 thou/uL (0.0-0.7); #Monocytes 0.6 thou/uL (0.11-0.59); #Neutrophils 5.8 thou/uL (1.40-6.50); %Eosinophils 3.6 % (0.0-10.0); %Lymphocytes 13.2 % (21.0-51.0); %Monocytes 8.1 % (0.0-10.0); %Neutrophils 74.1 % (42.0-75.0); Hemoglobin 10.2 g/dL (14.0-18.0); Mean Corpuscular HGB CONC 31.6 g/dL (32.0-36.0); Mean Corpuscular Hemoglobin 29.8 pg (27.0-31.0); Mean Corpuscular Volume 94.4 fL (78.0-98.0); Mean Platelet Volume 6.9 fL (7.4-10.4); Platelet Count 227 thou/uL (130-400); RBC Distribution Width 14.7 % (11.5-14.5); Red Blood Cell (RBC) Count 3.42 mill/uL (4.70-6.10); White Blood Cell (WBC) Count 7.9 thou/uL (4.8-10.8)
[2019-06-28 06:22] LABS: Carbon Dioxide 26 mmol/L (23-31); Chloride 106 mmol/L (98-107); Potassium 4.3 mmol/L (3.5-5.1); Sodium 140 mmol/L (136-145)
[2019-06-28 06:23] LABS: ALT (SGPT) 11 U/L (8-55); AST (SGOT) 12 U/L (5-34); Albumin 3.2 g/dL (3.4-4.8); Alkaline Phosphatase 86 U/L (40-150); Anion Gap 12 mmol/L (10-20); BUN (Urea Nitrogen) 17 mg/dL (8.4-25.7); Bilirubin, Total 0.3 mg/dL (0.2-1.2); Calc. Creatinine Clearance 87 mL/min (70-130); Calcium 8.6 mg/dL (7.8-10.44); Estimated GFR-MDRD 75; Globulin 1.9 g/dL (2.4-3.5); Glucose 92 mg/dL (83-110); Protein, Total 5.1 g/dL (5.8-8.1)
[2019-06-28 08:37] VITALS: BP 119/58
[2019-06-28] MEDS: Aspirin 81 mg Enteric Coated Tablet PO SCH (08:48)
[2019-06-28] MEDS: Calcium Carbonate + Vit D 1 TAB PO SCH (08:48)
[2019-06-28] MEDS: Fish Oil 1,000 MG CAP PO SCH (08:48)
[2019-06-28] MEDS: Gabapentin 300 MG CAP PO SCH (08:48)
[2019-06-28] MEDS: Rosuvastatin 10 MG TAB PO SCH (08:48)
[2019-06-28] MEDS: Ascorbic Acid 500 mg Chewable Tablet PO SCH (08:48)
[2019-06-28] MEDS: Ubidecarenone 50 MG CAP PO SCH (08:48)
[2019-06-28] MEDS: Apixaban 5 MG TAB PO SCH (08:48)
--- NOTE | 2019-06-28 17:18 | DIS ---
DATE OF ADMISSION: 06/19/2019 DATE OF DISCHARGE: 06/28/2019 HOSPITAL COURSE: Mr. Metcalf is a very pleasant 73-year-old white male, who was admitted to [facility] in [place] for a Watchman procedure. He did well postoperatively and was sent home. He was riding home with a friend and they had to stop in [place] because he became very nauseated. He started having significant nausea and projectile vomiting, and an ambulance was called and he was brought back to [facility] in [place]. There, he was stabilized. It was felt that he had been on amiodarone, which was thought to have aggravated the stomach. It was stopped, and eventually, he was transferred back to [facility] for physical therapy and occupational therapy to increase his strength and stamina. SUBJECTIVE: The patient states he is doing well and much more stable and wishes to go home. He has gotten okay from occupational therapy and physical therapy to be discharged. OBJECTIVE: VITAL SIGNS: Today, reveal blood pressure 119/58, pulse 70, respirations 18 to 20, O2 saturation of 97% on room air, and T-max 98.2. DISCHARGE MEDICATIONS: Include the followin. Aspirin 81 mg a day. 2. Ascorbic acid (vitamin C) 1000 mg a day. 3. Apixaban 5 mg b.i.d. 4. Xanax 0.25 mg at bedtime p.r.n. 5. Tylenol 650 mg q.4 hours p.r.n. 6. CoQ10 200 mg b.i.d. 7. Calcium carbonate plus vitamin D 1 pill a day. 8. Vitamin D3 2000 units a day. 9. Fluoxetine 20 mg a day. 10. Fish oil 1000 mg a day. 11. Gabapentin 300 mg b.i.d. 12. DuoNebs 3 mL nebs q.6 hours p.r.n. 13. Melatonin 10 mg at bedtime. 14. Protonix 40 mg b.i.d. 15. Ranexa 1000 mg b.i.d. 16. Crestor (rosuvastatin) 10 mg every other day. PHYSICAL EXAMINATION: VITAL SIGNS: This is a well-developed, well-nourished, very pleasant, slightly obese white male, in no apparent distress at this time. HEENT: Reveals normocephalic and nontraumatic cranium. Pupils are equal, round, and reactive. Extraocular movements are intact. Nose and throat are slightly dry, but clear. NECK: Supple without masses, nodes, or bruits. CHEST: Clear to auscultation. No rales, no rhonchi, no wheezes are heard. HEART: Reveals an irregularly irregular rate and rhythm. No murmurs, gallops, or rubs are noted. ABDOMEN: Soft, slightly obese, nontender without organomegaly. Normal bowel sounds are noted in all 4 quadrants. No rebound or guarding is noted. : Deferred. EXTREMITIES: Reveal no clubbing, cyanosis, or edema. ASSESSMENT: 1. Systolic congestive heart failure, acute on chronic, presently stable. 2. Coronary artery disease. 3. Chronic obstructive pulmonary disease. 4. Hypertension. 5. Gastroesophageal reflux disease. 6. Hyperlipidemia. 7. Neuropathy. 8. Prior history of stroke and transient ischemic attacks. 9. Degenerative joint disease. 10. Constipation. 11. Generalized weakness. PLAN: 1. The patient will be discharged today. 2. The patient will continue the previous medications as noted above. 3. The patient is to continue monitor his blood pressure. 4. The patient will have followup lab work in 2 to 3 weeks for renal and anemia indices. 5. Stress ulcer prophylaxis. 6. Decubitus precautions. 7. DVT prophylaxis. 8. The patient will have a caregiver with him most of the time. 9. The patient will see me in approximately 2 to 3 weeks. I spent more than 35 minutes dictating and in preparation for this patient's discharge and informing him of his medications and his progress. Job ID: [id number]
== END 2019-06-28 12:50 | disposition home health service (06) | DRG 293 ==
LOC: NAV ACUTE 19:36
PROVIDERS: ADMIT Family Medicine; ATTEND Family Medicine
DX: I11.0 Hypertensive heart disease with heart failure (principal); I25.10 Atherosclerotic heart disease of native coronary artery without angina pectoris; I50.23 Acute on chronic systolic (congestive) heart failure; J44.9 Chronic obstructive pulmonary disease, unspecified; K21.9 Gastro-esophageal reflux disease without esophagitis; E78.5 Hyperlipidemia, unspecified; G62.9 Polyneuropathy, unspecified; M19.90 Unspecified osteoarthritis, unspecified site; K59.00 Constipation, unspecified; R53.1 Weakness; I48.91 Unspecified atrial fibrillation; Z86.73 Personal history of transient ischemic attack (TIA), and cerebral infarction without residual deficits; Z95.1 Presence of aortocoronary bypass graft; Z95.0 Presence of cardiac pacemaker; Z90.49 Acquired absence of other specified parts of digestive tract; Z95.2 Presence of prosthetic heart valve; Z88.1 Allergy status to other antibiotic agents; Z88.5 Allergy status to narcotic agent; Z88.0 Allergy status to penicillin; Z88.8 Allergy status to other drugs, medicaments and biological substances; Z79.82 Long term (current) use of aspirin; Z79.899 Other long term (current) drug therapy
CPT/HCPCS: 36415; 80053; 81001; 83880; 84134; 85025; 94640; J7620

== ENCOUNTER 2020-04-28 22:12 | Emergency (ER) | payer MEDICARE ==
[2020-04-28] MEDS ORDERED: Bacitracin 1 PK ONE ×2 (22:30)
== END 2020-04-28 22:51 | disposition home or self-care (01) ==
LOC: NAV ERS 22:12
DX: S51.812A Laceration without foreign body of left forearm, initial encounter (principal); D64.89 Other specified anemias; I48.91 Unspecified atrial fibrillation; E78.5 Hyperlipidemia, unspecified; I12.9 Hypertensive chronic kidney disease with stage 1 through stage 4 chronic kidney disease, or unspecified chronic kidney disease; N18.2 Chronic kidney disease, stage 2 (mild); J44.9 Chronic obstructive pulmonary disease, unspecified; I25.10 Atherosclerotic heart disease of native coronary artery without angina pectoris; I25.2 Old myocardial infarction; F41.9 Anxiety disorder, unspecified; F32.9 Major depressive disorder, single episode, unspecified; Z86.73 Personal history of transient ischemic attack (TIA), and cerebral infarction without residual deficits; Z79.82 Long term (current) use of aspirin; Z79.899 Other long term (current) drug therapy; W22.8XXA Striking against or struck by other objects, initial encounter
CPT/HCPCS: 99283

== ENCOUNTER 2020-07-11 20:07 | Emergency (ER) | payer MEDICARE ==
[2020-07-11] MEDS ORDERED: Bacitracin 1 PK ONE ×2 (20:29→20:32)
== END 2020-07-11 20:37 | disposition home or self-care (01) ==
LOC: NAV ERS 20:07
DX: S51.812A Laceration without foreign body of left forearm, initial encounter (principal); D64.9 Anemia, unspecified; I48.91 Unspecified atrial fibrillation; E78.5 Hyperlipidemia, unspecified; J45.909 Unspecified asthma, uncomplicated; I25.2 Old myocardial infarction; I12.9 Hypertensive chronic kidney disease with stage 1 through stage 4 chronic kidney disease, or unspecified chronic kidney disease; N18.2 Chronic kidney disease, stage 2 (mild); I25.10 Atherosclerotic heart disease of native coronary artery without angina pectoris; Z86.73 Personal history of transient ischemic attack (TIA), and cerebral infarction without residual deficits; F41.9 Anxiety disorder, unspecified; F32.9 Major depressive disorder, single episode, unspecified; Z79.82 Long term (current) use of aspirin; Z79.51 Long term (current) use of inhaled steroids; Z79.899 Other long term (current) drug therapy; W55.89XA Other contact with other mammals, initial encounter
CPT/HCPCS: 99283

== ENCOUNTER 2020-10-27 14:11 | Emergency (ER) | payer MEDICARE ==
[2020-10-27 14:49] LABS: #Basophils 0.1 thou/uL (0.0-0.2); #Eosinphils 0.1 thou/uL (0.0-0.7); #Lymphocytes 0.9 thou/uL (1.20-3.40); #Monocytes 0.6 thou/uL (0.11-0.59); #Neutrophils 4.9 thou/uL (1.40-6.50); %Basophils 1.3 % (0.0-1.0); %Eosinophils 2.2 % (0.0-10.0); %Neutrophils 73.5 % (42.0-75.0); Hemoglobin 12.1 g/dL (14.0-18.0); Mean Corpuscular HGB CONC 32.4 g/dL (32.0-36.0); Mean Corpuscular Hemoglobin 31.8 pg (27.0-31.0); Platelet Count 220 thou/uL (130-400); RBC Distribution Width 12.1 % (11.5-14.5); Red Blood Cell (RBC) Count 3.82 mill/uL (4.70-6.10); White Blood Cell (WBC) Count 6.6 thou/uL (4.8-10.8)
[2020-10-27 15:09] LABS: ALT (SGPT) 11 U/L (8-55); AST (SGOT) 15 U/L (5-34); Albumin 3.6 g/dL (3.4-4.8); Alkaline Phosphatase 99 U/L (40-110); Anion Gap 14 mmol/L (10-20); BUN (Urea Nitrogen) 17 mg/dL (8.4-25.7); Bilirubin, Total 0.4 mg/dL (0.2-1.2); CK (CPK) 62 U/L (30-200); Calc. Creatinine Clearance 0 mL/min (70-130); Calcium 8.8 mg/dL (7.8-10.44); Carbon Dioxide 23 mmol/L (23-31); Chloride 108 mmol/L (98-107); Globulin 2.7 g/dL (2.4-3.5); Glucose 130 mg/dL (83-110); Protein, Total 6.3 g/dL (5.8-8.1); Sodium 141 mmol/L (136-145)
--- NOTE | 2020-10-27 16:11 | RAD ---
Exam: Chest one view HISTORY:Dyspnea Comparison: 07/15/2019, 03/13/2020 FINDINGS: Cardiac silhouette:Cardiomegaly. Stable sternotomy wires and left-sided transvenous pacemaker. Stable prosthetic aortic valve. Aorta: The sclerotic and elongated Pulmonary vessels: Normal Costophrenic angles: Clear LUNGS: No masses or consolidation. Pneumothorax: None Osseous abnormalities: None IMPRESSION: No acute cardiopulmonary process. Atherosclerosis.
== END 2020-10-27 16:35 | disposition home or self-care (01) ==
LOC: NAV ERS 14:11
DX: J44.9 Chronic obstructive pulmonary disease, unspecified (principal); I48.91 Unspecified atrial fibrillation; E78.5 Hyperlipidemia, unspecified; Z86.73 Personal history of transient ischemic attack (TIA), and cerebral infarction without residual deficits; I25.2 Old myocardial infarction; I13.10 Hypertensive heart and chronic kidney disease without heart failure, with stage 1 through stage 4 chronic kidney disease, or unspecified chronic kidney disease; N18.2 Chronic kidney disease, stage 2 (mild); Z79.82 Long term (current) use of aspirin; Z79.51 Long term (current) use of inhaled steroids
CPT/HCPCS: 71045; 80053; 82550; 83880; 84484; 85025; 93005

== ENCOUNTER 2020-12-28 16:16 | Outpatient (CLI) | payer MEDICARE ==
--- NOTE | 2020-12-28 16:51 | CT ---
Head CT without contrast 12/28/2020: COMPARISON: 03/13/2020 HISTORY: Frequent falls, bruising around the left orbit, facial trauma TECHNIQUE: Axial CT imaging at 5 mm intervals from vertex through skull base without contrast FINDINGS: The imaged paranasal sinuses demonstrates opacification of the posterior ethmoid air cells on the left and mild mucosal thickening involving the left alveolar recess of the maxillary sinus. There is atherosclerotic calcification involving the cavernous carotid arteries and the distal left v ertebral artery. There is no displaced calvarial fracture. No intracranial hemorrhage, midline shift, or mass effect. There is multifocal periventricular, deep, and subcortical white matter hypodensity, evidence of smal l vessel disease. 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 IMPRESSION: Chronic findings as detailed above. Stable head CT. No intracranial hemorrhage or displac ed calvarial fracture.
--- NOTE | 2020-12-28 17:10 | CT ---
CT FACIAL BONES WITHOUT CONTRAST: Date: 12/28/2020 HISTORY: Frequent falls, bruising around the left eye. FINDINGS: Comparison made with exam of 05/31/2019. No acute facial bones fracture seen. No temporomandibular dislocation identified. There is soft tissu e swelling in the left maxillary region. There is mucosal disease in the paranasal sinuses. No air fl uid levels are seen. No retrobulbar hematoma or proptosis is identified. IMPRESSION: No CT evidence of acute facial bone fracture. POS: [facility]
== END 2020-12-28 16:17 | disposition home or self-care (01) ==
LOC: NAV CT 16:16
PROVIDERS: ATTEND Family Medicine
DX: R29.6 Repeated falls (principal); R51.9 Headache, unspecified; R29.810 Facial weakness
CPT/HCPCS: 70450; 70486

== ENCOUNTER 2021-03-22 08:11 | Emergency (ER) | payer MEDICARE ==
[2021-03-22 09:13] LABS: #Basophils 0.1 thou/uL (0.0-0.2); #Eosinphils 0.1 thou/uL (0.0-0.7); #Lymphocytes 0.7 thou/uL (1.20-3.40); #Monocytes 0.5 thou/uL (0.11-0.59); #Neutrophils 6.2 thou/uL (1.40-6.50); %Basophils 1.2 % (0.0-1.0); %Eosinophils 1.7 % (0.0-10.0); %Lymphocytes 9.3 % (21.0-51.0); %Monocytes 6.9 % (0.0-10.0); %Neutrophils 80.9 % (42.0-75.0); Hemoglobin 12.3 g/dL (14.0-18.0); Mean Corpuscular HGB CONC 30.9 g/dL (32.0-36.0); Mean Corpuscular Hemoglobin 30.9 pg (27.0-31.0); Mean Platelet Volume 7.8 fL (7.4-10.4); Platelet Count 153 thou/uL (130-400); RBC Distribution Width 11.8 % (11.5-14.5); Red Blood Cell (RBC) Count 3.98 mill/uL (4.70-6.10); White Blood Cell (WBC) Count 7.6 thou/uL (4.8-10.8)
[2021-03-22 09:39] LABS: ALT (SGPT) 27 U/L (8-55); AST (SGOT) 46 U/L (5-34); Albumin 3.7 g/dL (3.4-4.8); Alkaline Phosphatase 99 U/L (40-110); Anion Gap 14 mmol/L (10-20); BUN (Urea Nitrogen) 19 mg/dL (8.4-25.7); Calc. Creatinine Clearance 0 mL/min (70-130); Calcium 8.7 mg/dL (7.8-10.44); Carbon Dioxide 21 mmol/L (23-31); Chloride 108 mmol/L (98-107); Globulin 2.6 g/dL (2.4-3.5); Glucose 97 mg/dL (83-110); Potassium 4.4 mmol/L (3.5-5.1); Protein, Total 6.3 g/dL (5.8-8.1); Sodium 139 mmol/L (136-145)
[2021-03-22] MEDS ORDERED: Sodium Chloride 0.9% 1,000 ML ONE (10:25)
[2021-03-22 11:25] LABS: Bilirubin Negative (Negative); Blood, Urine Negative (Negative); Clarity Slightly Cloudy (Clear); Glucose, Urine (Dipstick) Negative (Negative); Ketone, Urine Negative (Negative); Leukocyte Negative (Negative); Nitrite Negative (Negative); Protein, Urine (Dipstick) Negative (Neg-Trace); Specific Gravity, Urine 1.025 (1.005-1.030); pH, Urine 7.5 (5.0-9.0)
[2021-03-22] MEDS ORDERED: cefTRIAXone\\ROCEPHIN 1 GM VIAL ONE (11:28)
== END 2021-03-22 11:43 | disposition short-term general hospital (02) ==
LOC: NAV ERS 08:11
DX: R53.1 Weakness (principal); R42 Dizziness and giddiness; I12.9 Hypertensive chronic kidney disease with stage 1 through stage 4 chronic kidney disease, or unspecified chronic kidney disease; N18.2 Chronic kidney disease, stage 2 (mild); I48.91 Unspecified atrial fibrillation; E78.5 Hyperlipidemia, unspecified; J44.9 Chronic obstructive pulmonary disease, unspecified; I25.2 Old myocardial infarction; Z86.73 Personal history of transient ischemic attack (TIA), and cerebral infarction without residual deficits; W19.XXXA Unspecified fall, initial encounter
CPT/HCPCS: 70450; 71045; 80053; 81003; 83605; 84484; 85025; 87086; 93005; 94760; 96374; J0696; J7050

== ENCOUNTER 2022-04-30 04:07 | Emergency (ER) | payer MEDICARE ==
[2022-04-30 04:56] LABS: #Eosinphils 0.1 thou/uL (0.0-0.7); #Lymphocytes 1.2 thou/uL (1.20-3.40); #Monocytes 1.3 thou/uL (0.11-0.59); #Neutrophils 11.2 thou/uL (1.40-6.50); %Basophils 0.3 % (0.0-1.0); %Eosinophils 0.6 % (0.0-10.0); %Lymphocytes 8.9 % (21.0-51.0); %Monocytes 9.3 % (0.0-10.0); %Neutrophils 80.9 % (42.0-75.0); Hemoglobin 12.9 g/dL (14.0-18.0); Mean Corpuscular HGB CONC 32.7 g/dL (32.0-36.0); Mean Corpuscular Hemoglobin 32.2 pg (27.0-31.0); Mean Corpuscular Volume 98.7 fL (78.0-98.0); Mean Platelet Volume 8.8 fL (7.4-10.4); Platelet Count 217 thou/uL (130-400); RBC Distribution Width 12.4 % (11.5-14.5); Red Blood Cell (RBC) Count 3.99 mill/uL (4.70-6.10); White Blood Cell (WBC) Count 13.9 thou/uL (4.8-10.8)
[2022-04-30 05:03] LABS: ALT (SGPT) 19 U/L (8-55); AST (SGOT) 21 U/L (5-34); Albumin 3.9 g/dL (3.4-4.8); Alkaline Phosphatase 93 U/L (40-110); Anion Gap 18 mmol/L (10-20); BUN (Urea Nitrogen) 21 mg/dL (8.4-25.7); Bilirubin, Total 0.9 mg/dL (0.2-1.2); Calc. Creatinine Clearance 0 mL/min (70-130); Calcium 9.4 mg/dL (7.8-10.44); Carbon Dioxide 22 mmol/L (23-31); Chloride 100 mmol/L (98-107); Globulin 2.9 g/dL (2.4-3.5); Glucose 125 mg/dL (83-110); Potassium 4.2 mmol/L (3.5-5.1); Protein, Total 6.8 g/dL (5.8-8.1); Sodium 136 mmol/L (136-145)
[2022-04-30 07:15] LABS: Bilirubin Small (Negative); Blood, Urine Negative (Negative); Clarity Slightly Cloudy (Clear); Glucose, Urine (Dipstick) Negative (Negative); Ketone, Urine Trace mg/dL (Negative); Leukocyte Negative (Negative); Nitrite Negative (Negative); Protein, Urine (Dipstick) Negative (Neg-Trace); pH, Urine 5.5 (5.0-9.0)
[2022-04-30] MEDS ORDERED: Iopamidol 370 76% 100 ML VIAL ONE (09:00)
== END 2022-04-30 07:40 | disposition home or self-care (01) ==
LOC: NAV ERS 04:07
DX: R19.7 Diarrhea, unspecified (principal); R10.33 Periumbilical pain; N18.2 Chronic kidney disease, stage 2 (mild); I12.9 Hypertensive chronic kidney disease with stage 1 through stage 4 chronic kidney disease, or unspecified chronic kidney disease; I25.2 Old myocardial infarction; Z87.891 Personal history of nicotine dependence; J44.9 Chronic obstructive pulmonary disease, unspecified; Z79.899 Other long term (current) drug therapy
CPT/HCPCS: 74177; 80053; 81003; 83605; 85025; Q9967